=== PATIENT | male | born 1960 | race Caucasian/White ===

== ENCOUNTER 2017-11-07 21:09 | Emergency (ER) | payer BC ==
[~2017-11-07] VITALS: Ht 175.3 cm; Wt 63.6 kg
[2017-11-07 21:14] VITALS: PULSE 68; TEMP 98.4
[2017-11-07] MEDS ORDERED: CEPHALEXIN500 M1 PO (22:02)
[2017-11-07 22:13] VITALS: BP 132/62
== END 2017-11-07 22:14 | disposition home or self-care (01) ==
LOC: COL.ER 21:09
DX: S92.421A Displaced fracture of distal phalanx of right great toe, initial encounter for closed fracture (principal); F17.210 Nicotine dependence, cigarettes, uncomplicated; Z23 Encounter for immunization; W20.8XXA Other cause of strike by thrown, projected or falling object, initial encounter

== ENCOUNTER 2018-07-22 16:01 | Inpatient (IN) | payer BC ==
[~2018-07-22] VITALS: Ht 175.3 cm; Wt 66.1 kg
[~2018-07-22 16:01] MED LIST: CEPHALEXIN500 M1 PO
[2018-07-22 16:34] LABS: BASO % 0.3 % (0.0-2.0); GRAN # 10.3 (1.4-6.5); HEMATOCRIT 42.8 % (42.0-52.0); LYMPH # 0.9 (1.2-3.4); LYMPH % 7.3 % (20.0-51.0); MEAN CELL VOLUME 94 fl (80.0-100.0); MEAN CORPUSCULAR HEMOGLOBIN 31 pg (27.0-31.0); MEAN CORPUSCULAR HGB CONC 33 g/dl (33.0-37.0); MEAN PLATELET VOLUME 9.6 fl (7.4-10.4); MONO # 0.4 (0.1-0.6); MONO % 3.1 % (1.7-9.3); PLATELET COUNT 209 K/mm3 (130-400); RED BLOOD COUNT 4.55 M/mm3 (4.20-5.60); REDCELL DISTRIBUTION WIDTH-CV 13.9 % (11.5-14.5)
[2018-07-22 16:50] LABS: ALANINE AMINOTRANSFERASE 20 U/L (21-72); ALBUMIN 3.9 gm/dL (3.5-5.0); ALKALINE PHOSPHATASE 67 U/L (50-136); ANION GAP 6 mmol/L (7-16); AST,SGOT 24 U/L (15-37); BILIRUBIN,TOTAL 0.9 mg/dL (0.0-1.0); BLOOD UREA NITROGEN 21 mg/dL (9-20); CALCIUM 8.9 mg/dL (8.4-10.2); CARBON DIOXIDE 27 mmol/L (22-30); CHLORIDE 104 mmol/L (98-107); GLUCOSE 125 mg/dL (74-106); LIPASE 87 U/L (23-300); POTASSIUM 4.3 mmol/L (3.4-5.0); SODIUM 137 mmol/L (137-145); TOTAL PROTEIN 6.8 gm/dL (6.4-8.2)
[2018-07-22 16:57] LABS: C-REACTIVE PROTEIN < 0.5 mg/dL (0.0-0.9)
[2018-07-22 17:02] LABS: COLLECTION METHOD CLEAN CATCH
[2018-07-22 17:02] LABS: TROPONIN-I < 0.012 ng/mL (0.000-0.035)
[2018-07-22 17:09] LABS: MUCOUS Present /lpf; PH 8 (5-8); SQUAMOUS EPITHELIAL None Seen /hpf; URINE APPEARANCE Cloudy; URINE BACTERIA None Seen /hpf; URINE BILIRUBIN Negative (NEGATIVE); URINE BLOOD Negative (NEGATIVE); URINE COLOR Yellow; URINE GLUCOSE Negative (NEGATIVE); URINE KETONE Trace (NEGATIVE); URINE LEUKOCYTE ESTERASE Negative (NEGATIVE); URINE NITRATE Negative (NEGATIVE); URINE PROTEIN(semi-quant) Negative (NEGATIVE); URINE RBC None Seen /hpf; URINE UROBILINOGEN Negative (NEGATIVE)
[2018-07-22 22:05] VITALS: BP 127/75; PULSE 80; TEMP 98.1
[2018-07-22 23:35] VITALS: BP 126/63; PULSE 63
[2018-07-22 23:50] VITALS: BP 126/63; PULSE 71; TEMP 97.6
[2018-07-23] VITALS: BP 111/60; PULSE 67
[2018-07-23 01:00] VITALS: BP 125/61; PULSE 64
[2018-07-23 02:00] VITALS: BP 111/61; PULSE 73
--- NOTE | 2018-07-23 04:35 | NUR ---
RECOVERING WELL FROM SURGERY. PT HAS VOIDED. NO N/V. TAKING FLUIDS. DRESSING CD&I.
[2018-07-23 07:24] VITALS: BP 117/54; PULSE 75; TEMP 97.9
--- NOTE | 2018-07-23 09:41 | NUR ---
SW and SW student met with the patient to discuss discharge plan. The patient lives in [place] with his , Lorri. He reports independence with ADLs and does not use any DME. The patient's PCP is Dr. Praful Nguyen and he recevies his medications at the [facility] in [place]. He reports no difficulties obtaining his meds. The patient does not have advanced directives and he was not interested in completing them at this time. The patient plans to return home with his upon discharge. No additional needs at this time.
--- NOTE | 2018-07-23 11:14 | NUR ---
Patient alert and oriented, answers questions appropriately. See assessment. Abdomen soft, non distended, non tender. +Flatus. Incision to RLQ with dressing clean, dry and intact. Post op exercises reviewed with patient. No c/o at this time.
[2018-07-23 11:20] VITALS: BP 113/58; PULSE 62; TEMP 98.6
--- NOTE | 2018-07-23 11:39 | NUR ---
First visit from the tax examining technician. No needs right now.
--- NOTE | 2018-07-23 13:37 | NUR ---
Dr Marks here to see patient.
--- NOTE | 2018-07-23 15:25 | NUR ---
Discharge instructions reviewed with patient and spouse, verbalized understanding. Discharged ambulatory to auto/home with family at 1445.
== END 2018-07-23 14:45 | disposition home or self-care (01) | DRG 352 ==
LOC: COL.ER 16:01 → SURG 19:53
PROVIDERS: Emergency Medicine; ADMIT Surgery
PROC: 0YU50JZ Supplement Right Inguinal Region with Synthetic Substitute, Open Approach (ICD-10-PCS; 2018-07-22)
PROC: 0YU70JZ Supplement Right Femoral Region with Synthetic Substitute, Open Approach (ICD-10-PCS; principal; 2018-07-22 20:15)
DX: K41.30 Unilateral femoral hernia, with obstruction, without gangrene, not specified as recurrent (principal); K40.90 Unilateral inguinal hernia, without obstruction or gangrene, not specified as recurrent; F17.210 Nicotine dependence, cigarettes, uncomplicated
CPT/HCPCS: A4314; C1781; J1100; J1885; J2405; J2704; J3010; J7030; Q9967

== ENCOUNTER 2021-09-03 06:08 | Day surgery (SDC) | payer BC ==
[~2021-09-03] VITALS: Ht 175.3 cm; Wt 63.6 kg
[2021-09-03] VITALS (7 sets, daily range): BP systolic 111–124; BP diastolic 65–78; PULSE 7–80; TEMP 98.5–98.7
--- NOTE | 2021-09-03 07:24 | NUR ---
ONLINE TRADER MP contacted about positional IV. Orders recieved for new IV start. IV re-started in L forearm, with 20G above first attempt. IVF scanned and are infusing without difficulty. Call house remains within reach.
[2021-09-03] MEDS ORDERED: NORCO 325 MG-51 TAB PO (10:07)
--- NOTE | 2021-09-03 10:30 | NUR ---
Pt arrived from PACU drowsy but oriented. Vitals obtained. Verbal report obtained. x3 dressings are dry and intact, without swelling. Per report: mild scrotal swelling present, support present. Pt did not want anything to drink yet, will continue to monitor per intervals. Side rails x2. Call house is in his hand.
--- NOTE | 2021-09-03 10:35 | NUR ---
O2 and HR obtained. Pt continues to sleep. Call house continues to be within reach.
--- NOTE | 2021-09-03 10:45 | NUR ---
Vitals obtained. O2 titrated down to .5L via NC. O2 remains at 99%. Pt has had ice water and is tolerating it well. Call house remains within reach.
--- NOTE | 2021-09-03 11:00 | NUR ---
Vitals obtained. Pt has finished crackers and continues to deny nausea. Call house remains within reach.
--- NOTE | 2021-09-03 11:31 | NUR ---
Lorri brought in from waiting room
--- NOTE | 2021-09-03 12:24 | NUR ---
Pt ambulated to bathroom with REYES Sunshine and was able to void. Pt is changing into personal clothes with assistance from . Call house remains within reach.
--- NOTE | 2021-09-03 12:40 | NUR ---
IV discontinued. Catheter tip intact. Pressure bandage applied. No redness or swelling noted. DC instructions and educational material reviewed with the pt and his , both verbalized understanding. Questions answered. Follow up appointment card provided. Pt was then escorted out via wheelchair to the pt entrence by juan manuel Henry. Pt has DC packet and personal belongings in hand and transferred into a private car and into the care of his , who is present to drive.
== END 2021-09-03 12:54 | disposition home or self-care (01) ==
LOC: SDCO 06:08
DX: K40.91 Unilateral inguinal hernia, without obstruction or gangrene, recurrent (principal); K40.90 Unilateral inguinal hernia, without obstruction or gangrene, not specified as recurrent; K41.90 Unilateral femoral hernia, without obstruction or gangrene, not specified as recurrent; F17.210 Nicotine dependence, cigarettes, uncomplicated
CPT/HCPCS: C1781; J0690; J1100; J2405; J2704; J3010; J7120